=== PATIENT | male | born 1950 | race Caucasian/White ===

== ENCOUNTER → 2020-06-10 | Outpatient (CLI) | payer OTHER ==
[~2020-06-10] MED LIST: ASPIRIN81 M1 PO; HUMALOG100 U/ML SC; HUMALOG100 UNIT/1 SC; LANTUS SOL100 UNIT/1 SC; LANTUS100 U/ML SC; METFORMIN500 MG PO; PRAVACHOL20 MG PO; VITAMIN D350 MC2 PO; ZESTRIL,PRINIVIL5 MG PO
== END | disposition home or self-care (01) ==
LOC: COVID19 11:30
PROVIDERS: ATTEND Student in an Organized Health Care Education/Training Program
DX: U07.1 COVID-19 (principal)

== ENCOUNTER 2020-06-12 13:10 | Inpatient (IN) | payer OTHER ==
[~2020-06-12] VITALS: Ht 177.8 cm; Wt 79.1 kg
[~2020-06-12 13:10] MED LIST changes: -HUMALOG100 UNIT/1 SC; -LANTUS SOL100 UNIT/1 SC; -VITAMIN D350 MC2 PO
[2020-06-12 13:21] VITALS: BP 131/79
[2020-06-12 14:23] LABS: BASO % 0.4 % (0.0-1.0); HEMATOCRIT 46.9 % (42.0-52.0); LYMPH # 0.5 10*3/uL (1.3-4.4); LYMPH % 9.7 % (27.0-41.0); MEAN CELL VOLUME 87.3 fl (80.0-94.0); MEAN CORPUSCULAR HGB 27.9 pg (27.0-31.0); MEAN PLATELET VOLUME 9.8 fl (9.6-12.3); MONO # 0.5 10*3/uL (0.1-1.0); MONO % 10.1 % (3.0-9.0); NEUT # 3.7 10*3/uL (2.3-7.9); NEUT % 79.4 % (47.0-73.0); PLATELET COUNT AUTOMATED 141 10*3/uL (130-400); RED BLOOD COUNT 5.37 10*6/uL (4.50-5.90); RED CELL DISTRI WIDTH 12.7 % (0-14.5); WHITE BLOOD COUNT 4.7 10*3/uL (4.8-10.8)
[2020-06-12 14:33] LABS: ACT PARTIAL THROMBO TIME 26.2 SECONDS (20.0-32.1); INTERNATIONAL NORM RATIO 0.9 (2.0-3.5)
[2020-06-12 14:38] LABS: ALBUMIN 2.8 gm/dl (3.1-4.5); ALKALINE PHOSPHATASE 101 U/L (45-117); BUN 26 mg/dl (7-24); CHLORIDE 103 mmol/L (98-107); CREATININE 0.98 mg/dL (0.70-1.30); POTASSIUM 4.4 mmol/L (3.5-5.1); SGOT/AST 49 IU/L (3-35); SGPT/ALT 50 U/L (12-78); SODIUM 134 mmol/L (136-145); TOTAL PROTEIN 7.2 gm/dL (6.4-8.2)
[2020-06-12 15:24] LABS: BILIRUBIN Negative (Negative); BLOOD Trace-Lysed (Negative); CLARITY Clear (Clear); COLOR Yellow (Yellow); GLUCOSE 3+ (Negative); KETONE 4+ (Negative); LEUKO ESTERASE Negative (Negative); NITRITE Negative (Negative); SPECIFIC GRAVITY >= 1.030 (1.001-1.030); UROBILINOGEN 0.2 E.U./dl (0.0-1.0)
[2020-06-12 15:42] LABS: BACTERIA 2+; EPITHELIAL CELLS 0-2; RBC 0-2 rbc/hpf (0-2); WBC 0-2 wbc/hpf (0-5)
[2020-06-12 15:53] VITALS: BP 131/77
[2020-06-12 16:49] VITALS: BP 129/70
[2020-06-12 17:24] VITALS: BP 151/87
[2020-06-12 18:20] LABS: BUN 27 mg/dl (7-24); CHLORIDE 103 mmol/L (98-107); CREATININE 0.91 mg/dL (0.70-1.30); POTASSIUM 4.2 mmol/L (3.5-5.1); SODIUM 136 mmol/L (136-145)
[2020-06-12 20:00] VITALS: BP 103/53
[2020-06-12 22:16] LABS: ARTERIAL BLOOD GAS PH 7.38 (7.35-7.45)
[2020-06-12 22:17] LABS: ABG BASE EXCESS -9.4 mmol/L (-2.0-2.0)
[2020-06-12 22:21] LABS: BUN 23 mg/dl (7-24); CHLORIDE 107 mmol/L (98-107); LIPASE 156 U/L (73-393); POTASSIUM 3.7 mmol/L (3.5-5.1); SODIUM 137 mmol/L (136-145)
[2020-06-12 22:22] LABS: LDH 471 U/L (87-241)
[2020-06-13] VITALS: BP 118/59
[2020-06-13 02:21] LABS: BUN 20 mg/dl (7-24); CHLORIDE 108 mmol/L (98-107); POTASSIUM 3.6 mmol/L (3.5-5.1); SODIUM 139 mmol/L (136-145)
[2020-06-13 04:00] VITALS: BP 108/51
[2020-06-13 05:52] LABS: ALBUMIN 2.5 gm/dl (3.1-4.5); ALKALINE PHOSPHATASE 93 U/L (45-117); BUN 19 mg/dl (7-24); CHLORIDE 108 mmol/L (98-107); CHOLESTEROL 147 mg/dL (<200); CREATININE 0.75 mg/dL (0.70-1.30); HDL CHOLESTEROL 34 mg/dl (40-60); LDH 489 U/L (87-241); LDL CHOLESTEROL 83 mg/dL (9-159); POTASSIUM 3.6 mmol/L (3.5-5.1); SGOT/AST 45 IU/L (3-35); SGPT/ALT 42 U/L (12-78); SODIUM 138 mmol/L (136-145); TRIGLYCERIDES 148 mg/dl (<150); VLDL CHOLESTEROL 30 mg/dL (6-40)
[2020-06-13 05:53] LABS: TOTAL PROTEIN 6.5 gm/dL (6.4-8.2)
[2020-06-13 06:00] LABS: CPK 86 U/L (39-308); THYROID STIM HORMONE (HS) 0.056 uIU/ml (0.358-4.75)
[2020-06-13 06:14] LABS: INTERNATIONAL NORM RATIO 0.9 (2.0-3.5)
[2020-06-13 06:37] LABS: VITAMIN D, 25-HYDROXY 11.4 ng/mL (30-100)
[2020-06-13 06:39] LABS: HEMATOCRIT 46.5 % (42.0-52.0); LYMPH # 0.3 10*3/uL (1.3-4.4); LYMPH % 5.5 % (27.0-41.0); MEAN CELL VOLUME 84.7 fl (80.0-94.0); MEAN CORPUSCULAR HGB 28.4 pg (27.0-31.0); MEAN CORPUSCULAR HGB CONC 33.5 g/dl (33.0-37.0); MEAN PLATELET VOLUME 9.5 fl (9.6-12.3); MONO # 0.3 10*3/uL (0.1-1.0); MONO % 5.7 % (3.0-9.0); NEUT # 4.3 10*3/uL (2.3-7.9); NEUT % 88.6 % (47.0-73.0); PLATELET COUNT AUTOMATED 147 10*3/uL (130-400); RED BLOOD COUNT 5.49 10*6/uL (4.50-5.90); RED CELL DISTRI WIDTH 12.7 % (0-14.5); WHITE BLOOD COUNT 4.9 10*3/uL (4.8-10.8)
[2020-06-13 08:00] VITALS: BP 110/71
[2020-06-13 08:45] LABS: ABG BASE EXCESS -3.9 mmol/L (-2.0-2.0); ARTERIAL BLOOD GAS PH 7.445 (7.35-7.45)
[2020-06-13 12:00] VITALS: BP 118/75
[2020-06-13 12:27] LABS: ALBUMIN 2.2 gm/dl (3.1-4.5); ALKALINE PHOSPHATASE 85 U/L (45-117); BUN 21 mg/dl (7-24); CHLORIDE 110 mmol/L (98-107); CREATININE 0.66 mg/dL (0.70-1.30); POTASSIUM 3.8 mmol/L (3.5-5.1); SGOT/AST 39 IU/L (3-35); SGPT/ALT 37 U/L (12-78); SODIUM 139 mmol/L (136-145)
[2020-06-13 16:00] VITALS: BP 120/67
[2020-06-13 17:17] LABS: ABG BASE EXCESS -6.2 mmol/L (-2.0-2.0); ARTERIAL BLOOD GAS PH 7.401 (7.35-7.45)
[2020-06-13 20:00] VITALS: BP 124/79
[2020-06-13 23:11] LABS: ARTERIAL BLOOD GAS PH 7.424 (7.35-7.45)
[2020-06-14] VITALS: BP 102/58
[2020-06-14 04:00] VITALS: BP 111/58
[2020-06-14 06:07] LABS: HEMATOCRIT 40.1 % (42.0-52.0); LYMPH # 0.4 10*3/uL (1.3-4.4); LYMPH % 9.6 % (27.0-41.0); MEAN CELL VOLUME 83.5 fl (80.0-94.0); MEAN CORPUSCULAR HGB 28.8 pg (27.0-31.0); MEAN CORPUSCULAR HGB CONC 34.4 g/dl (33.0-37.0); MEAN PLATELET VOLUME 9.9 fl (9.6-12.3); MONO # 0.2 10*3/uL (0.1-1.0); MONO % 4.9 % (3.0-9.0); NEUT # 3.6 10*3/uL (2.3-7.9); NEUT % 85.3 % (47.0-73.0); PLATELET COUNT AUTOMATED 146 10*3/uL (130-400); RED CELL DISTRI WIDTH 12.8 % (0-14.5); WHITE BLOOD COUNT 4.3 10*3/uL (4.8-10.8)
[2020-06-14 06:13] LABS: ALBUMIN 2.1 gm/dl (3.1-4.5); BUN 23 mg/dl (7-24); CHLORIDE 114 mmol/L (98-107); CREATININE 0.59 mg/dL (0.70-1.30); LDH 471 U/L (87-241); POTASSIUM 3.9 mmol/L (3.5-5.1); SGOT/AST 32 IU/L (3-35); SGPT/ALT 34 U/L (12-78); SODIUM 142 mmol/L (136-145); TOTAL PROTEIN 5.7 gm/dL (6.4-8.2)
[2020-06-14 06:14] LABS: ALKALINE PHOSPHATASE 84 U/L (45-117); CPK 71 U/L (39-308)
[2020-06-14 07:07] LABS: ABG BASE EXCESS -3.8 mmol/L (-2.0-2.0); ARTERIAL BLOOD GAS PH 7.453 (7.35-7.45)
[2020-06-14 08:00] VITALS: BP 109/62
[2020-06-14 12:00] VITALS: BP 102/55
[2020-06-14 16:00] VITALS: BP 110/64
[2020-06-14 20:00] VITALS: BP 115/59
[2020-06-15] VITALS: BP 113/63
[2020-06-15 04:00] VITALS: BP 139/91
[2020-06-15 06:06] LABS: ALBUMIN 2.6 gm/dl (3.1-4.5); ALKALINE PHOSPHATASE 86 U/L (45-117); BUN 27 mg/dl (7-24); CHLORIDE 111 mmol/L (98-107); CREATININE 0.65 mg/dL (0.70-1.30); LDH 496 U/L (87-241); POTASSIUM 3.6 mmol/L (3.5-5.1); SGOT/AST 31 IU/L (3-35); SGPT/ALT 33 U/L (12-78); SODIUM 144 mmol/L (136-145); TOTAL PROTEIN 5.8 gm/dL (6.4-8.2)
[2020-06-15 06:08] LABS: CPK 44 U/L (39-308)
[2020-06-15 06:19] LABS: HEMATOCRIT 40.3 % (42.0-52.0); MEAN CELL VOLUME 82.6 fl (80.0-94.0); MEAN CORPUSCULAR HGB 28.5 pg (27.0-31.0); MEAN CORPUSCULAR HGB CONC 34.5 g/dl (33.0-37.0); MEAN PLATELET VOLUME 9.9 fl (9.6-12.3); RED BLOOD COUNT 4.88 10*6/uL (4.50-5.90); RED CELL DISTRI WIDTH 12.7 % (0-14.5); WHITE BLOOD COUNT 7.1 10*3/uL (4.8-10.8)
[2020-06-15 06:33] LABS: PLATELET COUNT AUTOMATED 192 10*3/uL (130-400)
[2020-06-15 06:51] LABS: ATYPICAL LYMPHS 2 % (0-0); BURR CELLS FEW; PLATELET SUFFICIENCY NORMAL (NORMAL); TOTAL CELLS COUNTED 100 #CELLS
[2020-06-15 07:25] LABS: ABG BASE EXCESS 0.5 mmol/L (-2.0-2.0); ARTERIAL BLOOD GAS PH 7.503 (7.35-7.45)
[2020-06-15 08:00] VITALS: BP 120/56
[2020-06-15 16:00] VITALS: BP 120/74
[2020-06-15 16:36] LABS: ABG BASE EXCESS -0.9 mmol/L (-2.0-2.0); ARTERIAL BLOOD GAS PH 7.46 (7.35-7.45)
[2020-06-15 20:00] VITALS: BP 91/56
[2020-06-16] VITALS: BP 114/69
[2020-06-16 04:00] VITALS: BP 108/64
[2020-06-16 06:09] LABS: HEMATOCRIT 42.3 % (42.0-52.0); MEAN CELL VOLUME 83.9 fl (80.0-94.0); MEAN CORPUSCULAR HGB 28.2 pg (27.0-31.0); MEAN CORPUSCULAR HGB CONC 33.6 g/dl (33.0-37.0); MEAN PLATELET VOLUME 10.1 fl (9.6-12.3); PLATELET COUNT AUTOMATED 228 10*3/uL (130-400); RED BLOOD COUNT 5.04 10*6/uL (4.50-5.90); RED CELL DISTRI WIDTH 12.9 % (0-14.5); WHITE BLOOD COUNT 6.8 10*3/uL (4.8-10.8)
[2020-06-16 06:13] LABS: ALBUMIN 2.6 gm/dl (3.1-4.5); ALKALINE PHOSPHATASE 86 U/L (45-117); BUN 26 mg/dl (7-24); CHLORIDE 108 mmol/L (98-107); CPK 42 U/L (39-308); CREATININE 0.68 mg/dL (0.70-1.30); LDH 534 U/L (87-241); POTASSIUM 4.2 mmol/L (3.5-5.1); SGOT/AST 29 IU/L (3-35); SGPT/ALT 36 U/L (12-78); SODIUM 141 mmol/L (136-145)
[2020-06-16 06:19] LABS: TOTAL PROTEIN 5.8 gm/dL (6.4-8.2)
[2020-06-16 06:32] LABS: ATYPICAL LYMPHS 2 % (0-0); TOTAL CELLS COUNTED 100 #CELLS
[2020-06-16 06:33] LABS: BURR CELLS FEW; PLATELET SUFFICIENCY NORMAL (NORMAL); POLYCHROMASIA SLIGHT
[2020-06-16 07:49] LABS: ABG BASE EXCESS 1.1 mmol/L (-2.0-2.0); ARTERIAL BLOOD GAS PH 7.501 (7.35-7.45)
[2020-06-16 08:00] VITALS: BP 108/58
[2020-06-16 12:00] VITALS: BP 111/68
[2020-06-16 16:00] VITALS: BP 104/61
[2020-06-16 20:00] VITALS: BP 115/67
[2020-06-17] VITALS: BP 106/66
[2020-06-17 04:00] VITALS: BP 108/69
[2020-06-17 06:06] LABS: ALKALINE PHOSPHATASE 90 U/L (45-117); BUN 24 mg/dl (7-24); CHLORIDE 106 mmol/L (98-107); CPK 32 U/L (39-308); LDH 537 U/L (87-241); POTASSIUM 3.9 mmol/L (3.5-5.1); SGOT/AST 22 IU/L (3-35); SGPT/ALT 32 U/L (12-78); SODIUM 142 mmol/L (136-145); TOTAL PROTEIN 5.7 gm/dL (6.4-8.2)
[2020-06-17 06:13] LABS: BASO % 0.2 % (0.0-1.0); EOS % 0.4 % (1.0-4.0); HEMATOCRIT 41.1 % (42.0-52.0); LYMPH # 0.4 10*3/uL (1.3-4.4); LYMPH % 6.6 % (27.0-41.0); MEAN CELL VOLUME 84.6 fl (80.0-94.0); MEAN CORPUSCULAR HGB 28.4 pg (27.0-31.0); MEAN CORPUSCULAR HGB CONC 33.6 g/dl (33.0-37.0); MEAN PLATELET VOLUME 9.6 fl (9.6-12.3); MONO # 0.3 10*3/uL (0.1-1.0); MONO % 4.6 % (3.0-9.0); NEUT # 4.7 10*3/uL (2.3-7.9); NEUT % 85.8 % (47.0-73.0); PLATELET COUNT AUTOMATED 235 10*3/uL (130-400); RED BLOOD COUNT 4.86 10*6/uL (4.50-5.90); RED CELL DISTRI WIDTH 12.8 % (0-14.5); WHITE BLOOD COUNT 5.4 10*3/uL (4.8-10.8)
[2020-06-17 07:40] LABS: ABG BASE EXCESS 5.2 mmol/L (-2.0-2.0); ARTERIAL BLOOD GAS PH 7.501 (7.35-7.45)
[2020-06-17 08:00] VITALS: BP 107/69
[2020-06-17 12:00] VITALS: BP 102/51
[2020-06-17 16:00] VITALS: BP 84/53
[2020-06-17 20:00] VITALS: BP 95/54
[2020-06-18] VITALS: BP 95/58
[2020-06-18 04:00] VITALS: BP 100/57; BP 109/62
[2020-06-18 06:17] LABS: HEMATOCRIT 39.4 % (42.0-52.0); MEAN CELL VOLUME 83.5 fl (80.0-94.0); MEAN CORPUSCULAR HGB 28.2 pg (27.0-31.0); MEAN CORPUSCULAR HGB CONC 33.8 g/dl (33.0-37.0); MEAN PLATELET VOLUME 9.2 fl (9.6-12.3); PLATELET COUNT AUTOMATED 220 10*3/uL (130-400); RED BLOOD COUNT 4.72 10*6/uL (4.50-5.90); RED CELL DISTRI WIDTH 12.4 % (0-14.5); WHITE BLOOD COUNT 4.3 10*3/uL (4.8-10.8)
[2020-06-18 06:41] LABS: ALBUMIN 3.5 gm/dl (3.1-4.5); BUN 25 mg/dl (7-24); CHLORIDE 99 mmol/L (98-107); POTASSIUM 3.8 mmol/L (3.5-5.1); SODIUM 136 mmol/L (136-145)
[2020-06-18 06:46] LABS: ALKALINE PHOSPHATASE 79 U/L (45-117); CPK 34 U/L (39-308); CREATININE 0.78 mg/dL (0.70-1.30); LDH 519 U/L (87-241); SGOT/AST 21 IU/L (3-35); SGPT/ALT 28 U/L (12-78); TOTAL PROTEIN 6.1 gm/dL (6.4-8.2)
[2020-06-18 07:27] LABS: PLATELET SUFFICIENCY NORMAL (NORMAL); TOTAL CELLS COUNTED 100 #CELLS
[2020-06-18 07:40] LABS: ABG BASE EXCESS 6.3 mmol/L (-2.0-2.0); ARTERIAL BLOOD GAS PH 7.543 (7.35-7.45)
[2020-06-18 08:00] VITALS: BP 102/60
[2020-06-18 12:00] VITALS: BP 124/79
[2020-06-18 16:00] VITALS: BP 110/74
[2020-06-18 20:00] VITALS: BP 114/71
[2020-06-19] VITALS: BP 102/66
[2020-06-19 06:12] LABS: HEMATOCRIT 41.8 % (42.0-52.0); MEAN CELL VOLUME 85.7 fl (80.0-94.0); MEAN CORPUSCULAR HGB 28.7 pg (27.0-31.0); MEAN CORPUSCULAR HGB CONC 33.5 g/dl (33.0-37.0); MEAN PLATELET VOLUME 9.4 fl (9.6-12.3); PLATELET COUNT AUTOMATED 234 10*3/uL (130-400); RED BLOOD COUNT 4.88 10*6/uL (4.50-5.90); RED CELL DISTRI WIDTH 12.7 % (0-14.5); WHITE BLOOD COUNT 6.3 10*3/uL (4.8-10.8)
[2020-06-19 06:15] LABS: ALBUMIN 3.3 gm/dl (3.1-4.5); ALKALINE PHOSPHATASE 87 U/L (45-117); BUN 22 mg/dl (7-24); CHLORIDE 101 mmol/L (98-107); CPK 26 U/L (39-308); CREATININE 0.78 mg/dL (0.70-1.30); SGOT/AST 17 IU/L (3-35); SGPT/ALT 25 U/L (12-78); SODIUM 137 mmol/L (136-145); TOTAL PROTEIN 5.9 gm/dL (6.4-8.2)
[2020-06-19 07:04] LABS: TOTAL CELLS COUNTED 100 #CELLS
[2020-06-19 07:05] LABS: BURR CELLS FEW; PLATELET SUFFICIENCY NORMAL (NORMAL)
[2020-06-19 08:00] VITALS: BP 105/55
[2020-06-19 12:00] VITALS: BP 112/43
[2020-06-19 16:00] VITALS: BP 102/72
[2020-06-19 20:00] VITALS: BP 108/66
[2020-06-20] VITALS: BP 103/71
[2020-06-20 06:11] LABS: HEMATOCRIT 45.6 % (42.0-52.0); MEAN CELL VOLUME 86.4 fl (80.0-94.0); MEAN CORPUSCULAR HGB 28.2 pg (27.0-31.0); MEAN CORPUSCULAR HGB CONC 32.7 g/dl (33.0-37.0); MEAN PLATELET VOLUME 8.9 fl (9.6-12.3); PLATELET COUNT AUTOMATED 240 10*3/uL (130-400); RED BLOOD COUNT 5.28 10*6/uL (4.50-5.90); RED CELL DISTRI WIDTH 12.7 % (0-14.5); WHITE BLOOD COUNT 7.8 10*3/uL (4.8-10.8)
[2020-06-20 06:18] LABS: ALBUMIN 3.3 gm/dl (3.1-4.5); BUN 20 mg/dl (7-24); CHLORIDE 99 mmol/L (98-107); CREATININE 0.85 mg/dL (0.70-1.30); POTASSIUM 4.4 mmol/L (3.5-5.1); SGOT/AST 17 IU/L (3-35); SGPT/ALT 25 U/L (12-78); SODIUM 135 mmol/L (136-145); TOTAL PROTEIN 6.3 gm/dL (6.4-8.2)
[2020-06-20 06:19] LABS: ALKALINE PHOSPHATASE 95 U/L (45-117); CPK 26 U/L (39-308)
[2020-06-20 06:46] LABS: BURR CELLS FEW; PLATELET SUFFICIENCY NORMAL (NORMAL); TOTAL CELLS COUNTED 100 #CELLS
[2020-06-20 08:00] VITALS: BP 103/61
[2020-06-20 12:00] VITALS: BP 100/47; BP 103/61
[2020-06-20 16:00] VITALS: BP 104/67
[2020-06-20 20:00] VITALS: BP 107/63
[2020-06-21] VITALS: BP 119/70
[2020-06-21 06:12] LABS: HEMATOCRIT 39.2 % (42.0-52.0); MEAN CELL VOLUME 84.8 fl (80.0-94.0); MEAN CORPUSCULAR HGB 28.1 pg (27.0-31.0); MEAN CORPUSCULAR HGB CONC 33.2 g/dl (33.0-37.0); PLATELET COUNT AUTOMATED 211 10*3/uL (130-400); RED BLOOD COUNT 4.62 10*6/uL (4.50-5.90); RED CELL DISTRI WIDTH 12.6 % (0-14.5); WHITE BLOOD COUNT 9.7 10*3/uL (4.8-10.8)
[2020-06-21 06:19] LABS: ALBUMIN 2.7 gm/dl (3.1-4.5); ALKALINE PHOSPHATASE 93 U/L (45-117); BUN 18 mg/dl (7-24); CHLORIDE 101 mmol/L (98-107); CPK 22 U/L (39-308); CREATININE 0.58 mg/dL (0.70-1.30); POTASSIUM 4.2 mmol/L (3.5-5.1); SGOT/AST 22 IU/L (3-35); SGPT/ALT 23 U/L (12-78); SODIUM 135 mmol/L (136-145); TOTAL PROTEIN 5.3 gm/dL (6.4-8.2)
[2020-06-21 07:25] LABS: TOTAL CELLS COUNTED 100 #CELLS
[2020-06-21 07:26] LABS: PLATELET SUFFICIENCY NORMAL (NORMAL)
[2020-06-21 08:00] VITALS: BP 100/61
[2020-06-21 12:00] VITALS: BP 106/61
[2020-06-21 16:00] VITALS: BP 114/63
[2020-06-21 20:00] VITALS: BP 114/66
[2020-06-22] VITALS: BP 101/66
[2020-06-22 08:00] VITALS: BP 105/63
[2020-06-22 12:00] VITALS: BP 114/72
[2020-06-22 12:06] LABS: ORGANISM ID Final report (.)
[2020-06-22 16:00] VITALS: BP 112/86; BP 84/71
[2020-06-22 20:00] VITALS: BP 118/66
[2020-06-23] VITALS: BP 116/67
[2020-06-23 06:01] LABS: HEMATOCRIT 40.7 % (42.0-52.0); MEAN CELL VOLUME 86.2 fl (80.0-94.0); MEAN CORPUSCULAR HGB 28.4 pg (27.0-31.0); MEAN CORPUSCULAR HGB CONC 32.9 g/dl (33.0-37.0); MEAN PLATELET VOLUME 9.6 fl (9.6-12.3); PLATELET COUNT AUTOMATED 216 10*3/uL (130-400); RED BLOOD COUNT 4.72 10*6/uL (4.50-5.90); RED CELL DISTRI WIDTH 12.9 % (0-14.5); WHITE BLOOD COUNT 15.9 10*3/uL (4.8-10.8)
[2020-06-23 06:17] LABS: ALBUMIN 2.8 gm/dl (3.1-4.5); BUN 18 mg/dl (7-24); CHLORIDE 104 mmol/L (98-107); CREATININE 0.57 mg/dL (0.70-1.30); POTASSIUM 4.1 mmol/L (3.5-5.1); SGOT/AST 22 IU/L (3-35); SGPT/ALT 33 U/L (12-78); SODIUM 137 mmol/L (136-145)
[2020-06-23 06:23] LABS: ALKALINE PHOSPHATASE 119 U/L (45-117); LDH 541 U/L (87-241); TOTAL PROTEIN 5.7 gm/dL (6.4-8.2)
[2020-06-23 06:30] LABS: CPK 29 U/L (39-308)
[2020-06-23 06:56] LABS: ATYPICAL LYMPHS 1 % (0-0); PLATELET SUFFICIENCY NORMAL (NORMAL); TOTAL CELLS COUNTED 100 #CELLS
[2020-06-23 08:00] VITALS: BP 106/62
[2020-06-23 12:00] VITALS: BP 118/68
[2020-06-23 16:00] VITALS: BP 103/67; BP 98/56
[2020-06-23 20:00] VITALS: BP 95/50
[2020-06-24] VITALS: BP 91/62
[2020-06-24 06:59] LABS: HEMATOCRIT 38.1 % (42.0-52.0); MEAN CELL VOLUME 85.6 fl (80.0-94.0); MEAN CORPUSCULAR HGB 28.5 pg (27.0-31.0); MEAN CORPUSCULAR HGB CONC 33.3 g/dl (33.0-37.0); MEAN PLATELET VOLUME 8.8 fl (9.6-12.3); PLATELET COUNT AUTOMATED 173 10*3/uL (130-400); RED BLOOD COUNT 4.45 10*6/uL (4.50-5.90); RED CELL DISTRI WIDTH 13.1 % (0-14.5); WHITE BLOOD COUNT 11.4 10*3/uL (4.8-10.8)
[2020-06-24 07:29] LABS: ALBUMIN 2.3 gm/dl (3.1-4.5); BUN 16 mg/dl (7-24); CHLORIDE 105 mmol/L (98-107); CREATININE 0.54 mg/dL (0.70-1.30); POTASSIUM 4.1 mmol/L (3.5-5.1); SGOT/AST 19 IU/L (3-35); SGPT/ALT 27 U/L (12-78); SODIUM 136 mmol/L (136-145); TOTAL PROTEIN 5.1 gm/dL (6.4-8.2)
[2020-06-24 07:33] LABS: ALKALINE PHOSPHATASE 123 U/L (45-117); CPK 33 U/L (39-308); LDH 465 U/L (87-241)
[2020-06-24 07:48] LABS: BURR CELLS FEW; OVALOCYTES FEW; PLATELET SUFFICIENCY NORMAL (NORMAL); POLYCHROMASIA SLIGHT; TOTAL CELLS COUNTED 100 #CELLS
[2020-06-24 08:00] VITALS: BP 90/53
[2020-06-24 12:00] VITALS: BP 105/57
[2020-06-24 16:00] VITALS: BP 109/69
[2020-06-24 20:00] VITALS: BP 113/60
[2020-06-25] VITALS: BP 102/62
[2020-06-25 06:24] LABS: HEMATOCRIT 41.9 % (42.0-52.0); MEAN CELL VOLUME 86.7 fl (80.0-94.0); MEAN CORPUSCULAR HGB 29.2 pg (27.0-31.0); MEAN CORPUSCULAR HGB CONC 33.7 g/dl (33.0-37.0); PLATELET COUNT AUTOMATED 129 10*3/uL (130-400); RED BLOOD COUNT 4.83 10*6/uL (4.50-5.90); RED CELL DISTRI WIDTH 13.3 % (0-14.5); WHITE BLOOD COUNT 12.3 10*3/uL (4.8-10.8)
[2020-06-25 06:39] LABS: CHLORIDE 100 mmol/L (98-107); POTASSIUM 4.1 mmol/L (3.5-5.1); SODIUM 134 mmol/L (136-145)
[2020-06-25 06:47] LABS: ALBUMIN 2.5 gm/dl (3.1-4.5); ALKALINE PHOSPHATASE 163 U/L (45-117); BUN 14 mg/dl (7-24); CPK 38 U/L (39-308); CREATININE 0.55 mg/dL (0.70-1.30); LDH 507 U/L (87-241); SGOT/AST 20 IU/L (3-35); SGPT/ALT 22 U/L (12-78); TOTAL PROTEIN 5.7 gm/dL (6.4-8.2)
[2020-06-25 07:28] LABS: BASOPHILS 1 % (0-1); BURR CELLS FEW; PLATELET SUFFICIENCY LOW (NORMAL); POLYCHROMASIA SLIGHT; TOTAL CELLS COUNTED 100 #CELLS
[2020-06-25 08:00] VITALS: BP 123/75
[2020-06-25 12:00] VITALS: BP 96/57
[2020-06-25 16:00] VITALS: BP 90/54
[2020-06-25 20:00] VITALS: BP 90/56
[2020-06-26] VITALS: BP 105/69
[2020-06-26 06:03] LABS: ALBUMIN 2.2 gm/dl (3.1-4.5); BUN 17 mg/dl (7-24); CHLORIDE 103 mmol/L (98-107); CREATININE 0.48 mg/dL (0.70-1.30); POTASSIUM 4.2 mmol/L (3.5-5.1); SGOT/AST 27 IU/L (3-35); SGPT/ALT 18 U/L (12-78); SODIUM 133 mmol/L (136-145); TOTAL PROTEIN 5.5 gm/dL (6.4-8.2)
[2020-06-26 06:05] LABS: ALKALINE PHOSPHATASE 161 U/L (45-117); CPK 41 U/L (39-308); LDH 540 U/L (87-241)
[2020-06-26 06:22] LABS: MEAN CELL VOLUME 86.8 fl (80.0-94.0); MEAN CORPUSCULAR HGB 28.8 pg (27.0-31.0); MEAN CORPUSCULAR HGB CONC 33.2 g/dl (33.0-37.0); MEAN PLATELET VOLUME 9.7 fl (9.6-12.3); PLATELET COUNT AUTOMATED 101 10*3/uL (130-400); RED BLOOD COUNT 4.38 10*6/uL (4.50-5.90); RED CELL DISTRI WIDTH 13.4 % (0-14.5); WHITE BLOOD COUNT 10.4 10*3/uL (4.8-10.8)
[2020-06-26 07:55] LABS: BURR CELLS FEW; PLATELET SUFFICIENCY LOW (NORMAL); POLYCHROMASIA SLIGHT; TOTAL CELLS COUNTED 100 #CELLS
[2020-06-26 08:00] VITALS: BP 100/58
[2020-06-26 12:00] VITALS: BP 104/60
[2020-06-26] MEDS ORDERED: LANTUS SOL100 UNIT/1 SC (12:48)
[2020-06-26] MEDS ORDERED: VITAMIN D350 MC2 PO (12:48)
[2020-06-26] MEDS ORDERED: HUMALOG100 UNIT/1 SC (12:48)
[2020-06-26 16:00] VITALS: BP 101/60
[2020-06-26 20:00] VITALS: BP 107/62
[2020-06-27] VITALS: BP 94/61
[2020-06-27 06:12] LABS: MEAN CELL VOLUME 86.3 fl (80.0-94.0); MEAN CORPUSCULAR HGB 28.5 pg (27.0-31.0); MEAN CORPUSCULAR HGB CONC 33.1 g/dl (33.0-37.0); MEAN PLATELET VOLUME 9.8 fl (9.6-12.3); PLATELET COUNT AUTOMATED 109 10*3/uL (130-400); RED BLOOD COUNT 4.17 10*6/uL (4.50-5.90); RED CELL DISTRI WIDTH 13.6 % (0-14.5); WHITE BLOOD COUNT 9.2 10*3/uL (4.8-10.8)
[2020-06-27 06:45] LABS: CHLORIDE 100 mmol/L (98-107); CREATININE 0.48 mg/dL (0.70-1.30); POTASSIUM 4.1 mmol/L (3.5-5.1); SGOT/AST 14 IU/L (3-35); SGPT/ALT 15 U/L (12-78); SODIUM 134 mmol/L (136-145)
[2020-06-27 06:50] LABS: ALKALINE PHOSPHATASE 202 U/L (45-117); BUN 22 mg/dl (7-24); CPK 33 U/L (39-308); LDH 502 U/L (87-241); TOTAL PROTEIN 5.4 gm/dL (6.4-8.2)
[2020-06-27 07:37] LABS: BASOPHILS 1 % (0-1); PLATELET SUFFICIENCY LOW (NORMAL); TOTAL CELLS COUNTED 100 #CELLS
[2020-06-27 08:00] VITALS: BP 111/64
[2020-06-27 09:00] VITALS: BP 122/60
[2020-06-27 12:00] VITALS: BP 105/65
[2020-06-27 16:00] VITALS: BP 110/69
[2020-06-27 20:00] VITALS: BP 103/58
[2020-06-28] VITALS: BP 103/70
[2020-06-28 05:32] LABS: ALBUMIN 2.1 gm/dl (3.1-4.5); ALKALINE PHOSPHATASE 226 U/L (45-117); BUN 20 mg/dl (7-24); CHLORIDE 105 mmol/L (98-107); CREATININE 0.55 mg/dL (0.70-1.30); LDH 527 U/L (87-241); POTASSIUM 4.2 mmol/L (3.5-5.1); SGOT/AST 16 IU/L (3-35); SGPT/ALT 15 U/L (12-78); SODIUM 138 mmol/L (136-145); TOTAL PROTEIN 6.1 gm/dL (6.4-8.2)
[2020-06-28 05:36] LABS: CPK 50 U/L (39-308)
[2020-06-28 06:19] LABS: BASO % 0.1 % (0.0-1.0); EOS # 0.1 10*3/uL (0.0-0.4); EOS % 0.7 % (1.0-4.0); HEMATOCRIT 37.2 % (42.0-52.0); LYMPH # 0.5 10*3/uL (1.3-4.4); LYMPH % 4.7 % (27.0-41.0); MEAN CELL VOLUME 88.2 fl (80.0-94.0); MEAN CORPUSCULAR HGB 28.9 pg (27.0-31.0); MEAN CORPUSCULAR HGB CONC 32.8 g/dl (33.0-37.0); MEAN PLATELET VOLUME 9.7 fl (9.6-12.3); MONO # 0.4 10*3/uL (0.1-1.0); MONO % 4.4 % (3.0-9.0); NEUT # 8.6 10*3/uL (2.3-7.9); NEUT % 89.6 % (47.0-73.0); PLATELET COUNT AUTOMATED 114 10*3/uL (130-400); RED BLOOD COUNT 4.22 10*6/uL (4.50-5.90); RED CELL DISTRI WIDTH 13.9 % (0-14.5); WHITE BLOOD COUNT 9.6 10*3/uL (4.8-10.8)
[2020-06-28 08:00] VITALS: BP 108/66
[2020-06-28 12:00] VITALS: BP 118/73
[2020-06-28 12:03] LABS: ABG BASE EXCESS -0.2 mmol/L (-2.0-2.0); ARTERIAL BLOOD GAS PH 7.442 (7.35-7.45)
[2020-06-28 15:04] LABS: ABG BASE EXCESS 0.2 mmol/L (-2.0-2.0); ARTERIAL BLOOD GAS PH 7.419 (7.35-7.45)
[2020-06-28 16:00] VITALS: BP 118/73; BP 118/79
[2020-06-28 20:00] VITALS: BP 102/66
[2020-06-29] VITALS: BP 105/62
[2020-06-29 07:05] LABS: BASO % 0.4 % (0.0-1.0); EOS # 0.1 10*3/uL (0.0-0.4); EOS % 1.5 % (1.0-4.0); HEMATOCRIT 37.4 % (42.0-52.0); LYMPH # 0.4 10*3/uL (1.3-4.4); LYMPH % 4.1 % (27.0-41.0); MEAN CELL VOLUME 89.9 fl (80.0-94.0); MEAN CORPUSCULAR HGB 28.6 pg (27.0-31.0); MEAN CORPUSCULAR HGB CONC 31.8 g/dl (33.0-37.0); MEAN PLATELET VOLUME 9.7 fl (9.6-12.3); MONO # 0.3 10*3/uL (0.1-1.0); NEUT # 7.6 10*3/uL (2.3-7.9); NEUT % 89.8 % (47.0-73.0); PLATELET COUNT AUTOMATED 131 10*3/uL (130-400); RED BLOOD COUNT 4.16 10*6/uL (4.50-5.90); RED CELL DISTRI WIDTH 14.3 % (0-14.5); WHITE BLOOD COUNT 8.5 10*3/uL (4.8-10.8)
[2020-06-29 07:22] LABS: BUN 19 mg/dl (7-24); CHLORIDE 107 mmol/L (98-107); POTASSIUM 4.1 mmol/L (3.5-5.1); SGOT/AST 20 IU/L (3-35); SGPT/ALT 14 U/L (12-78); SODIUM 140 mmol/L (136-145)
[2020-06-29 07:31] LABS: ALKALINE PHOSPHATASE 230 U/L (45-117); LDH 507 U/L (87-241); TOTAL PROTEIN 6.7 gm/dL (6.4-8.2)
[2020-06-29 07:35] LABS: CPK 66 U/L (39-308)
[2020-06-29 08:00] VITALS: BP 126/79
== END 2020-06-29 13:08 | disposition expired | DRG 637 ==
LOC: ED 13:10 → EDHOLD 15:05 → ICCU 15:05 → EDHOLD 15:48 → ICCU 16:42 → 4E 06-18 15:44
PROVIDERS: Emergency Medicine; Family Medicine; Internal Medicine Critical Care Medicine; Social Worker Clinical; Student in an Organized Health Care Education/Training Program; ADMIT Internal Medicine; ATTEND Internal Medicine
PROC: 5A09457 Assistance with Respiratory Ventilation, 24-96 Consecutive Hours, Continuous Positive Airway Pressure (ICD-10-PCS; principal; 2020-06-13)
PROC: XW033E5 Introduction of Remdesivir Anti-infective into Peripheral Vein, Percutaneous Approach, New Technology Group 5 (ICD-10-PCS; 2020-06-13)
PROC: 03HY33Z Insertion of Infusion Device into Upper Artery, Percutaneous Approach (ICD-10-PCS; 2020-06-13)
PROC: B34HZZZ Ultrasonography of Right Upper Extremity Arteries (ICD-10-PCS; 2020-06-13)
PROC: 5A09457 Assistance with Respiratory Ventilation, 24-96 Consecutive Hours, Continuous Positive Airway Pressure (ICD-10-PCS; 2020-06-14)
PROC: 5A0935A Assistance with Respiratory Ventilation, Less than 24 Consecutive Hours, High Flow/Velocity Cannula (ICD-10-PCS; 2020-06-14)
PROC: 5A09357 Assistance with Respiratory Ventilation, Less than 24 Consecutive Hours, Continuous Positive Airway Pressure (ICD-10-PCS; 2020-06-16)
PROC: 5A09457 Assistance with Respiratory Ventilation, 24-96 Consecutive Hours, Continuous Positive Airway Pressure (ICD-10-PCS; 2020-06-27)
DX: E11.10 Type 2 diabetes mellitus with ketoacidosis without coma (principal); J15.9 Unspecified bacterial pneumonia; J80 Acute respiratory distress syndrome; J12.82 Pneumonia due to coronavirus disease 2019; U07.1 COVID-19; E44.0 Moderate protein-calorie malnutrition; D68.59 Other primary thrombophilia; E87.1 Hypo-osmolality and hyponatremia; Z66 Do not resuscitate; D69.59 Other secondary thrombocytopenia; F17.210 Nicotine dependence, cigarettes, uncomplicated; E83.39 Other disorders of phosphorus metabolism; N40.1 Benign prostatic hyperplasia with lower urinary tract symptoms; E87.6 Hypokalemia; R39.11 Hesitancy of micturition; Z51.5 Encounter for palliative care; Z68.27 Body mass index [BMI] 27.0-27.9, adult; Z79.4 Long term (current) use of insulin; Z91.19 Patient's noncompliance with other medical treatment and regimen; Z82.49 Family history of ischemic heart disease and other diseases of the circulatory system; Z88.0 Allergy status to penicillin